=== PATIENT | female | born 1975 | race Caucasian/White ===

== ENCOUNTER 2016-10-09 04:10 | Observation (INO) | payer SELFPAY ==
[~2016-10-09] VITALS: Ht 170.2 cm; Wt 76.0 kg
[~2016-10-09 04:10] MED LIST: DOXY100T PO; PRED20 PO; SULF-154 PO; Z.0.NO CURRENT MEDS
[2016-10-09 04:11] VITALS: BP 117/67; PULSE 112; RESP 18; TEMP 98.1; O2SAT 98
[2016-10-09] MEDS ORDERED: SODIUM CHLORIDE 0.9% FLUSH 5 ML FLUSH IVF PRN (04:30)
[2016-10-09 04:38] VITALS: RESP 16
[2016-10-09 04:51] LABS: AUTOMATED NEUTROPHIL # 3.8 TH/MM3 (1.8-7.7); BASOPHIL # 0.1 TH/MM3 (0-0.2); EOSINOPHIL # 0.2 TH/MM3 (0-0.4); EOSINOPHIL % 2.9 % (0.0-4.0); HEMATOCRIT 34.2 % (35.0-46.0); HEMO FLAGS DIFF FINAL; MEAN CELL VOLUME 88.3 FL (80.0-100.0); MEAN CORPUSCULAR HEMOGLOBIN 30.2 PG (27.0-34.0); MEAN CORPUSCULAR HGB CONC 34.2 % (32.0-36.0); MONO % 7.2 % (0.0-8.0); NEUT % 57.9 % (16.0-70.0); PLATELET COUNT 258 TH/MM3 (150-450); RED BLOOD COUNT 3.87 MIL/MM3 (4.00-5.30); RED CELL DISTRIBUTION WIDTH 13.4 % (11.6-17.2); WHITE BLOOD COUNT 6.6 TH/MM3 (4.0-11.0)
--- NOTE | 2016-10-09 05:06 | RADRPT ---
EXAM DATE/TIME: 10/09/2016 04:52 [facility] COMPARISON: No previous studies available for comparison. INDICATIONS : Posterior headache for 2 weeks. RADIATION DOSE: 42.18 CTDIvol (mGy) MEDICAL HISTORY : None SURGICAL HISTORY : Tubal ligation. ENCOUNTER: Initial ACUITY: 2 weeks PAIN SCALE: 4/10 LOCATION: occipital TECHNIQUE: Multiple contiguous axial images were obtained of the head. Using automated exposure control and adj ustment of the mA and/or kV according to patient size, radiation dose was kept as low as reasonably a chievable to obtain optimal diagnostic quality images. FINDINGS: CEREBRUM: The lateral ventricles are prominent for age. No evidence of midline shift, mass lesion, hemorrhage or acute infarction. No extra-axial fluid collections are seen. POSTERIOR FOSSA: The cerebellum and brainstem are intact. The 4th ventricle is midline and normal in size. The cereb ellopontine angle is unremarkable. EXTRACRANIAL: The visualized portion of the orbits is intact. SKULL: The calvaria is intact. No evidence of skull fracture. CONCLUSION: 1. No focal or acute intracranial hemorrhage. 2. The lateral ventricles appear to be somewhat prominent for patient's age. This finding is nonspeci fic and needs to be correlated patient's physical and clinical exam. Daniel Samayoa MD on October 09, 2016 at 5:01 Board Certified Radiologist. This report was verified electronically.
[2016-10-09 05:20] LABS: BICARBONATE 27.3 MEQ/L (21.0-32.0); POTASSIUM 4.2 MEQ/L (3.5-5.1)
[2016-10-09 05:52] LABS: APTT (PATIENT) 27.3 SEC (24.3-30.1); PROTHROMBIN TIME - PATIENT 10.5 SEC (9.8-11.6)
--- NOTE | 2016-10-09 06:09 | PD ---
HPI Chief Complaint: Headache Time Seen by Provider: 04:18 Travel History International Travel<30 days: No Contact w/Intl Traveler<30days: No Traveled to known affect area: No History of Present Illness HPI 41-year-old female arrives here complaining of intermittent occipital cephalgia for the past 2 weeks. Episodes last about 5 minutes. They occur about 3-10 times per day. While they occur the patient experiences vertigo. He can be quite severe at times. At times she cannot walk. She's had no fever. No similar prior events have occurred. The cephalgia can be quite severe at times. In between the episodes she is asymptomatic. No trauma to report. 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) Reproductive: No Respiratory: Yes (BILAT PNEMONIA @18) Immunizations Current: Yes Tetanus Vaccination: > 5 Years Influenza Vaccination: No ?: Unknown : 3 Para: 2 Tubal Ligation: Yes Past Surgical History Abdominal Surgery: Yes Section: Yes (TWICE) Cholecystectomy: Yes Genitourinary Surgery: No Gynecologic Surgery: Yes ( x2) Neurologic Surgery: No Thoracic Surgery: No Other Surgery: Yes Social History Alcohol Use: No Tobacco Use: Yes (1/2PPD FOR 10 YEARS) Substance Use: No Allergies-Medications (Allergen,Severity, Reaction): Coded Allergies: Penicillin (Verified Allergy, Severe, hives and sob, 10/09/16) Reported Meds & Prescriptions Reported Meds & Active Scripts Active Review of Systems Except as stated in HPI: all other systems reviewed are Neg Physical Exam Narrative GENERAL: 41 yo F, WNWD, NAD SKIN: Warm and dry. HEAD: Atraumatic. Normocephalic. EYES: Pupils equal and round. No scleral icterus. No injection or drainage. No nystagmus ENT: No nasal bleeding or discharge. Mucous membranes pink and moist. NECK: Trachea midline. No JVD. CARDIOVASCULAR: Regular rate and rhythm. RESPIRATORY: No accessory muscle use. Clear to auscultation. Breath sounds equal bilaterally. GASTROINTESTINAL: Abdomen soft, non-tender, nondistended. Hepatic and splenic margins not palpable. MUSCULOSKELETAL: Extremities without clubbing, cyanosis, or edema. No obvious deformities. NEUROLOGICAL: Awake and alert. No obvious cranial nerve deficits. Motor grossly within normal limits. Five out of 5 muscle strength in the arms and legs. Normal speech. PSYCHIATRIC: Appropriate mood and affect; insight and judgment normal. Data Data Last Documented VS Vital Signs Date Time Temp Pulse Resp B/P Pulse Ox O2 Delivery O2 Flow Rate FiO2 10/09/16 06:30 91 16 136/72 98 Room Air 10/09/16 04:11 98.1 Orders Complete Blood Count With Diff (10/09/16 04:29) Basic Metabolic Panel (Bmp) (10/09/16 04:29) Prothrombin Time / Inr (Pt) (10/09/16 04:29) Act Partial Throm Time (Ptt) (10/09/16 04:29) Ecg Monitoring (10/09/16 04:29) Iv Access Insert/Monitor (10/09/16 04:29) Oximetry (10/09/16 04:29) Sodium Chloride 0.9% Flush (Ns Flush) (10/09/16 04:30) Ct Brain W/O Iv Contrast(Rout) (10/09/16 04:29) Mri Brain W&W/O Contrast (10/09/16 06:27) Mri C Spine W&W/O Contrast (10/09/16 ) Mrv Brain W Contrast (10/09/16 ) Westergren Sedimentation Rate (10/09/16 06:37) Admit Order (Ed Use Only) (10/09/16 06:38) Labs Laboratory Tests Test 10/09/16 10/09/16 04:45 05:25 White Blood Count 6.6 TH/MM3 Red Blood Count 3.87 MIL/MM3 Hemoglobin 11.7 GM/DL Hematocrit 34.2 % Mean Corpuscular Volume 88.3 FL Mean Corpuscular Hemoglobin 30.2 PG Mean Corpuscular Hemoglobin 34.2 % Concent Red Cell Distribution Width 13.4 % Platelet Count 258 TH/MM3 Mean Platelet Volume 7.9 FL Neutrophils (%) (Auto) 57.9 % Lymphocytes (%) (Auto) 31.0 % Monocytes (%) (Auto) 7.2 % Eosinophils (%) (Auto) 2.9 % Basophils (%) (Auto) 1.0 % Neutrophils # (Auto) 3.8 TH/MM3 Lymphocytes # (Auto) 2.0 TH/MM3 Monocytes # (Auto) 0.5 TH/MM3 Eosinophils # (Auto) 0.2 TH/MM3 Basophils # (Auto) 0.1 TH/MM3 CBC Comment DIFF FINAL Differential Comment Sodium Level 139 MEQ/L Potassium Level 4.2 MEQ/L Chloride Level 104 MEQ/L Carbon Dioxide Level 27.3 MEQ/L Anion Gap 8 MEQ/L Blood Urea Nitrogen 11 MG/DL Creatinine 0.84 MG/DL Estimat Glomerular Filtration 75 ML/MIN Rate Random Glucose 99 MG/DL Calcium Level 8.2 MG/DL Prothrombin Time 10.5 SEC Prothromb Time International 1.0 RATIO Ratio Activated Partial 27.3 SEC Thromboplast Time MDM Medical Decision Making Medical Screen Exam Complete: Yes Emergency Medical Condition: Yes Medical Record Reviewed: Yes Differential Diagnosis Intracranial mass, migraine, SAH, meningitis Narrative Course CBC & BMP Diagram 10/09/16 04:45 Coags 10.5 / 1.0 / 27.3 Last [address] 10/09/16 0429 Signed Impressions: Service Date/Time: Sunday, October 09, 2016 04:52 - CONCLUSION: 1. No focal or acute intracranial hemorrhage. 2. The lateral ventricles appear to be somewhat prominent for patient's age. This finding is nonspecific and needs to be correlated patient's physical and clinical exam. Daniel Samayoa MD The patient will be admitted for further investigation of symptomatic intracranial pathology. Discussed with Dr. Schwartz of neurology. Discussed with Dr. Sanchez. Diagnosis Primary Impression: Cephalgia Qualified Code: R51 - Nonintractable headache, unspecified chronicity pattern , unspecified headache type Additional Impression: Cerebral ventriculomegaly Admitting Information Admitting Physician Requests: Observation Shantanu Crenshaw MD Oct 09, 2016 06:09
[2016-10-09 06:30] VITALS: BP 136/72; PULSE 91; RESP 16; O2SAT 98
[2016-10-09] MEDS ORDERED: ACETAMINOPHEN 325 MG TAB PO PRN (06:45)
[2016-10-09] MEDS ORDERED: SODIUM CHLORIDE 0.9% FLUSH 5 ML FLUSH FLUSH PRN (06:45)
[2016-10-09] MEDS ORDERED: BISACODYL 10 MG SUPP PR PRN ×2 (06:45→10:15)
[2016-10-09] MEDS ORDERED: ONDANSETRON HCL 4 MG/2 ML VIAL IVP PRN (06:45)
[2016-10-09] MEDS ORDERED: ACETAMINOPHEN/HYDROcodone 325 MG/5 MG TAB PO PRN (06:45)
[2016-10-09] MEDS ORDERED: MORPHINE SULFATE 4 MG/ML INJ IV PRN (06:45)
[2016-10-09 09:00] VITALS: BP 116/67; PULSE 90; RESP 14; O2SAT 99
[2016-10-09] MEDS ORDERED: SODIUM CHLORIDE 0.9% FLUSH 5 ML FLUSH FLUSH SCH (09:00)
[2016-10-09] MEDS ORDERED: GADODIAMIDE PF 287 MG/ML 20 ML VIAL (for RAD MRI) IV ONE (09:05)
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
[2016-10-09] MEDS ORDERED: MAGNESIUM HYDROXIDE SUSP 30 ML CUP PO PRN (10:15)
[2016-10-09] MEDS ORDERED: NALOXONE HCL 0.4 MG/ML AMP IV PRN (10:15)
[2016-10-09] MEDS ORDERED: SENNOSIDES 8.6 MG TAB PO PRN (10:15)
--- NOTE | 2016-10-09 10:23 | RADRPT ---
EXAM DATE/TIME: 10/09/2016 08:31 [facility] COMPARISON: CT BRAIN W/O CONTRAST, October 09, 2016, 4:52. INDICATIONS : Pain at base of skull with vertigo and nausea. CONTRAST: 20 cc Omniscan (gadodiamide) IV MEDICAL HISTORY : None. SURGICAL HISTORY : Cholecystectomy. section. Rt hand ENCOUNTER: Initial ACUITY: 1 day PAIN SCORE: 3/10 LOCATION: cranial TECHNIQUE: Multiplanar, multisequence MRI examination of the cervical spine was performed. FINDINGS: The soft tissues are normal. Bony structures are intact and normally aligned with no ev idence fracture, compression, subluxation, or marrow replacement destructive change. Odontoid is in n ormal relationship the arch of C1 and the foramen is open and patent with normal upper thoracic spine . Multilevel degenerative disc disease is appreciated with narrowing of C3 -C6 intervertebral disc spaces and varying degrees of osteophyte disc protrusion at C3-4 most promine nt centrally encroaching upon minimally effacing the central cord and at C4-5 Central to right parace ntral protrusion slightly abutting the cord minimal at C5-6 however uncovertebral hypertrophy encroac hes upon the neural foramina bilaterally at this level. Interval central disc bulge at C6-7. CONCLUSION: Multilevel degenerative disc disease and osteophyte disc protrusions as described abo ve. No acute bony abnormality and no evidence of mass with the cord essentially intact Jay Manzano MD on October 09, 2016 at 10:18 Board Certified Radiologist. This report was verified electronically.
--- NOTE | 2016-10-09 10:36 | HHI.HP ---
[facility] No Primary Care Physician Admission Diagnosis Intermittent Occipital Cephalgia, Vertigo, Ventriculomegaly Diagnoses: Chief Complaint: Headache Travel History International Travel<30 Days: No Contact w/Intl Traveler <30 Da: No Traveled to Known Affected Are: No History of Present Illness 41-year-old female with no significant past medical history who presented with headaches. The patient states that the past 2 weeks she's been having intermittent headaches. She states the headaches are severe, and usually lasts for less than 5 minutes at a time. She denies any factors that initiated the pain. She describes the pain as a pressure, 6/10 in severity. She tries to take ibuprofen only but the headaches usually resolve before medications help. She has associated nausea and vertigo with the headaches. She denies any numbness or weakness. She has chronic sinus problems. Review of Systems Other 10 point review of systems performed and was negative except as stated in history of present illness Past Family Social History Past Medical History None Past Surgical History 2, tubal ligation Cholecystectomy Hand surgery Reported Medications None Allergies: Coded Allergies: Penicillin (Verified Allergy, Severe, hives and sob, 10/09/16) Active Ordered Medications Current Medications Medications (Trade) Dose Ordered Sig/[place] Route Start Time Stop Time Status Last Admin (NS Flush) 2 ml UNSCH PRN FLUSH 10/09/16 06:45 (NS Flush) 2 ml BID FLUSH 10/09/16 09:00 10/09/16 08:54 (Zofran Inj) 4 mg Q6H PRN IVP 10/09/16 06:45 (Tylenol) 650 mg Q6H PRN PO 10/09/16 06:45 ([place] 5-325 Mg) 1 tab Q4H PRN PO 10/09/16 06:45 (Morphine Inj) 2 mg Q3H PRN IV 10/09/16 06:45 (Dulcolax Supp) 10 mg DAILY PRN MI 10/09/16 10:15 (Colace) 100 mg Q12HR PO 10/09/16 11:00 (Milk Of Magnesia Liq) 30 ml Q12H PRN PO 10/09/16 10:15 (Senokot) 17.2 mg Q12H PRN PO 10/09/16 10:15 (Narcan Inj) 0.4 mg UNSCH PRN IV 10/09/16 10:15 Family History Extensive family history of cancer in both grandmothers and father. Lung cancer , throat cancer, skin cancer, esophageal cancer. Social History Smokes half pack per day Does use meth, last used a few days ago Denies any alcohol use Physical Exam Vital Signs Vital Signs Date Time Temp Pulse Resp B/P Pulse Ox O2 Delivery O2 Flow Rate FiO2 10/09/16 09:00 90 14 116/67 99 Room Air 10/09/16 06:30 91 16 136/72 98 Room Air 10/09/16 04:38 16 10/09/16 04:35 16 10/09/16 04:11 98.1 112 18 117/67 98 Physical Exam GENERAL: Well-developed well-nourished. In no acute distress. SKIN: Warm and dry. No lesions noted. HEENT: Normocephalic. Pupils 3 mm equal and round. Mucous membranes pink and moist. No lymphadenopathy. CARDIOVASCULAR: Regular rate and rhythm. No murmur appreciated. RESPIRATORY: No accessory muscle use. Clear to auscultation. Breath sounds equal bilaterally. GASTROINTESTINAL: Abdomen soft, non-tender, nondistended. Bowel sounds x4. MUSCULOSKELETAL: No obvious deformities. No clubbing or cyanosis. No edema. NEUROLOGICAL: Awake and alert. No focal neurological deficits. Moves upper and lower extremities spontaneously. Normal speech. PSYCHIATRIC: Appropriate mood and affect; insight and judgment normal. Laboratory Laboratory Tests Test 10/09/16 10/09/16 04:45 05:25 White Blood Count 6.6 Red Blood Count 3.87 Hemoglobin 11.7 Hematocrit 34.2 Mean Corpuscular Volume 88.3 Mean Corpuscular Hemoglobin 30.2 Mean Corpuscular Hemoglobin 34.2 Concent Red Cell Distribution Width 13.4 Platelet Count 258 Mean Platelet Volume 7.9 Neutrophils (%) (Auto) 57.9 Lymphocytes (%) (Auto) 31.0 Monocytes (%) (Auto) 7.2 Eosinophils (%) (Auto) 2.9 Basophils (%) (Auto) 1.0 Neutrophils # (Auto) 3.8 Lymphocytes # (Auto) 2.0 Monocytes # (Auto) 0.5 Eosinophils # (Auto) 0.2 Basophils # (Auto) 0.1 CBC Comment DIFF FINAL Differential Comment Erythrocyte Sedimentation Rate 21 Sodium Level 139 Potassium Level 4.2 Chloride Level 104 Carbon Dioxide Level 27.3 Anion Gap 8 Blood Urea Nitrogen 11 Creatinine 0.84 Estimat Glomerular Filtration 75 Rate Random Glucose 99 Calcium Level 8.2 Prothrombin Time 10.5 Prothromb Time International 1.0 Ratio Activated Partial 27.3 Thromboplast Time Result Diagram: 10/09/16 0445 10/09/16 0445 Imaging Last Impressions Head CT 10/09/16 0429 Signed Impressions: Service Date/Time: Sunday, October 09, 2016 04:52 - CONCLUSION: 1. No focal or acute intracranial hemorrhage. 2. The lateral ventricles appear to be somewhat prominent for patient's age. This finding is nonspecific and needs to be correlated patient's physical and clinical exam. Daniel Samayoa MD Cervical Spine MRI 10/09/16 0000 Signed Impressions: Service Date/Time: Sunday, October 09, 2016 08:31 - CONCLUSION: Multilevel degenerative disc disease and osteophyte disc protrusions as described above. No acute bony abnormality and no evidence of mass with the cord essentially intact Jay Manzano MD Assessment and Plan Problem List: (1) Cephalgia ICD Code: R51 Status: Acute (2) Cerebral ventriculomegaly ICD Code: G93.89 Status: Acute Assessment and Plan 41-year-old female with no significant past medical history who presented with headaches Headaches: Neurology was consulted from the ED, possible obstructive hydrocephalus seen on head CT. ESR 21. Brain MRI, MRV, and C-spine MRI ordered. Neurosurgery consultation requested. Supportive care. Pain control with oral and intravenous narcotics as needed. Tobacco use: Patient counseled on cessation. Patient is not interested in quitting. Methamphetamine abuse: Patient counseled on cessation. DVT prophylaxis: SCDs Written by Steven Vuong, acting as scribe for Dr. Arias on 10/09/16 at 10:36. The documentation accurately reflects the work performed [id number] by me on at 1036 Discussed Condition With Patient Problem Qualifiers (1) Cephalgia: Qualified Code: R51 - Nonintractable headache, unspecified chronicity pattern, unspecified headache type Steven Vuong Oct 09, 2016 10:36 Augustin Arias MD Oct 09, 2016 11:38
[2016-10-09] MEDS ORDERED: DOCUSATE SODIUM 100 MG CAP PO SCH (11:00)
--- NOTE | 2016-10-09 11:03 | RADRPT ---
EXAM DATE/TIME: 10/09/2016 08:31 [facility] COMPARISON: CT BRAIN W/O CONTRAST, October 09, 2016, 4:52. INDICATIONS : Pain at base of skull with vertigo and nausea. CONTRAST: 20 cc Omniscan (gadodiamide) IV MEDICAL HISTORY : None. SURGICAL HISTORY : Cholecystectomy. section. Rt hand ENCOUNTER: Initial ACUITY: 1 day PAIN SCORE: 3/10 LOCATION: cranial TECHNIQUE: Multiplanar, multisequence MRI of the brain was performed both prior to and following the administrat ion of paramagnetic contrast. FINDINGS: CEREBRUM: An 8 mm mass is seen situated within the anterior third ventricle within the midline. This is smoothl y marginated and well circumscribed. It is high in signal on the flair sequence, hypointense on T1 an d hyperintense on T2. Minimal peripheral rim enhancement is seen following gadolinium. There is mild hydrocephaly involving the lateral ventricles. The third and fourth ventricles are normal in size. No evidence of midline shift, mass lesion, hemorrhage or acute infarction. No extraaxial fluid collect ions are seen. The pituitary gland and suprasellar cistern are normal in configuration. WHITE MATTER: No significant signal abnormalities are seen in the white matter. POSTERIOR FOSSA: The cerebellum and brainstem are intact. The 4th ventricle is midline. The cerebellopontine angle is unremarkable. The cerebellar tonsils are normal in position. DIFFUSION IMAGING: No focal areas of restricted diffusion are seen. No evidence of acute infarction. EXTRACRANIAL: The visualized portions of the orbits and paranasal sinuses are unremarkable. POST-CONTRAST: No abnormal areas of parenchymal or dural enhancement. No evidence of blood-brain barrier breakdown. 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 Kole Lopez Jr., MD on October 09, 2016 at 10:54 Board Certified Radiologist. This report was verified electronically.
--- NOTE | 2016-10-09 11:36 | RADRPT ---
EXAM DATE/TIME: 10/09/2016 08:31 COMPARISON: MRI BRAIN W & W/O CONTRAST, October 09, 2016, 8:31. INDICATIONS : Pain at base of skull with vertigo and nausea. CONTRAST: 20 cc Omniscan (gadodiamide) IV MEDICAL HISTORY : None. SURGICAL HISTORY : Cholecystectomy. section. Right hand. ENCOUNTER: Subsequent ACUITY: 2 day PAIN SCORE: 3/10 LOCATION: cranial FINDINGS: The superior sagittal sinus, cortical veins, torcula, and transverse sinus and proximal jugular veins are patent. The internal cerebral veins are patent. The vena Trace and the straight sinus are patent . CONCLUSION: 1. No findings to indicate venous sinus thrombosis identified. Shantanu Moreira MD on October 09, 2016 at 11:15 Board Certified Radiologist. This report was verified electronically.
[2016-10-09 12:11] VITALS: BP 118/70; PULSE 97; RESP 18; O2SAT 99
[2016-10-09 12:33] LABS: AMPHETAMINE, URINE POS (NEG); BARBITURATES, URINE NEG (NEG); COCAINE, URINE NEG (NEG)
[2016-10-09 12:35] LABS: BACTERIA, URINE RARE /hpf; BLOOD, URINE NEG (NEG); GLUCOSE,URINE NEG (NEG); KETONE, URINE NEG (NEG); MUCUS URINE FEW /lpf (OCC); NITRITE,URINE NEG (NEG); PH, URINE 6.5 (5.0-8.5); SQUAMOUS EPITHELIAL CELL URINE 13 /hpf (0-5); URINE COLOR YELLOW (YELLW/STRAW)
[2016-10-09 12:38] LABS: COMMENT (UR) CULT NOT INDICATED; CULTURE IF INDICATED CULT NOT INDICATED
--- NOTE | 2016-10-09 12:43 | PD.CONS ---
History of Present Illness Service Neurosurgery Consult Requested By Emergency room physician Neurology Reason for Consult Hydrocephalus Primary Care Physician No Primary Care Physician Diagnoses: History of Present Illness 41-year-old female gives a history of approximately 2 weeks of new onset intermittent but relatively severe headaches and neck pain, not accompanied by nausea or vomiting. She complains of "flashing lights" at the periphery of her vision, but no definite blurred vision or diplopia. She has had no fevers chills or sweats. No definite gait difficulty, memory loss, confusion, speech deficit. She has no history of chronic headaches Review of Systems Constitutional: DENIES: Fever, Chills, Dizziness Eyes: COMPLAINS OF: Photosensitivity, DENIES: Blurred vision, Double Vision Respiratory: DENIES: Cough, Shortness of breath Cardiovascular: DENIES: Chest pain, Palpitations Gastrointestinal: DENIES: Abdominal pain, Nausea Musculoskeletal: DENIES: Joint pain Hematologic/lymphatic: DENIES: Bruising Neurologic: COMPLAINS OF: Headache, DENIES: Abnormal gait, Speech Problems, Poor Balance Psychiatric: DENIES: Anxiety, Confusion Past Family Social History Allergies: Coded Allergies: Penicillin (Verified Allergy, Severe, hives and sob, 10/09/16) Past Medical History Negative cardiac, pulmonary, gastrointestinal disease, diabetes, hypertension Past Surgical History 2 Hand surgery Cholecystectomy Reported Medications No prescription medications Family History Positive cancer in her grandmother's and grandfather. Cardiac disease grandfather Social History Smokes 1 pack cigarettes a day No alcohol Physical Exam Vital Signs Vital Signs Date Time Temp Pulse Resp B/P Pulse Ox O2 Delivery O2 Flow Rate FiO2 10/09/16 12:11 97 18 118/70 99 10/09/16 12:08 83 18 99 Room Air 10/09/16 09:00 90 14 116/67 99 Room Air 10/09/16 06:30 91 16 136/72 98 Room Air 10/09/16 04:38 16 10/09/16 04:35 16 10/09/16 04:11 98.1 112 18 117/67 98 Physical Exam GENERAL: This is a well-nourished, well-developed patient, in no apparent distress. SKIN: No rashes, ecchymoses or lesions. Cool and dry. HEAD: Atraumatic. Normocephalic. No temporal or scalp tenderness. EYES: Pupils equal round and reactive. Extraocular motions intact. No scleral icterus. There is some blunting of the medial bilateral fundus, suggestive of mild early papilledema. ENT: Nose without bleeding, purulent drainage or septal hematoma. Throat without erythema, tonsillar hypertrophy or exudate. NECK: Trachea midline. No JVD or lymphadenopathy. Supple, nontender, no meningeal signs. CARDIOVASCULAR: Regular rate and rhythm RESPIRATORY: Clear, nonlabored. No cough GASTROINTESTINAL: Abdomen soft, non-tender, nondistended. No hepato-splenomegaly , or palpable masses. No guarding. MUSCULOSKELETAL: Extremities without clubbing, cyanosis, or edema. No joint tenderness, or edema noted. No calf tenderness. NEUROLOGICAL: Awake and alert Oriented X 3 Speech is clear Conversant and appropriate Follow simple commands well Answers questions appropriately Reasonable judgment and insight Recent and remote memory are intact No evidence of anxiety or depression Pupils are equal and reactive to accommodation. Extra-ocular movements, visual hamilton to confrontation, facial sensorimotor, tongue, palate, sternocleidomastoid testing, hearing to finger rub testing, and bilateral shoulder shrug are all intact. Sensation is intact to light touch in all extremities Strength normal major flexion and extension groups all extremities Henry's absent bilaterally No ankle clonus Plantar responses absent bilateral Fine motor movements intact upper extremities Laboratory Laboratory Tests Test 10/09/16 10/09/16 04:45 05:25 White Blood Count 6.6 Red Blood Count 3.87 Hemoglobin 11.7 Hematocrit 34.2 Mean Corpuscular Volume 88.3 Mean Corpuscular Hemoglobin 30.2 Mean Corpuscular Hemoglobin 34.2 Concent Red Cell Distribution Width 13.4 Platelet Count 258 Mean Platelet Volume 7.9 Neutrophils (%) (Auto) 57.9 Lymphocytes (%) (Auto) 31.0 Monocytes (%) (Auto) 7.2 Eosinophils (%) (Auto) 2.9 Basophils (%) (Auto) 1.0 Neutrophils # (Auto) 3.8 Lymphocytes # (Auto) 2.0 Monocytes # (Auto) 0.5 Eosinophils # (Auto) 0.2 Basophils # (Auto) 0.1 CBC Comment DIFF FINAL Differential Comment Erythrocyte Sedimentation Rate 21 Sodium Level 139 Potassium Level 4.2 Chloride Level 104 Carbon Dioxide Level 27.3 Anion Gap 8 Blood Urea Nitrogen 11 Creatinine 0.84 Estimat Glomerular Filtration 75 Rate Random Glucose 99 Calcium Level 8.2 Prothrombin Time 10.5 Prothromb Time International 1.0 Ratio Activated Partial 27.3 Thromboplast Time Result Diagram: 10/09/16 0445 10/09/16 0445 Imaging 10/09/16 MRI brain images reviewed by the undersigned. Agree with findings as noted below. There is moderate ventriculomegaly of the lateral ventricles, not including the third or fourth ventricle. 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 Kole Lopez Jr., MD Head CT 10/09/16 0429 Signed Impressions: Service Date/Time: Sunday, October 09, 2016 04:52 - CONCLUSION: 1. No focal or acute intracranial hemorrhage. 2. The lateral ventricles appear to be somewhat prominent for patient's age. This finding is nonspecific and needs to be correlated patient's physical and clinical exam. Daniel Samayoa MD Head/Brain Mag Res Venography 10/09/16 0000 Signed Impressions: Service Date/Time: Sunday, October 09, 2016 08:31 - CONCLUSION: 1. No findings to indicate venous sinus thrombosis identified. Shantanu Moreira MD Cervical Spine MRI 10/09/16 0000 Signed Impressions: Service Date/Time: Sunday, October 09, 2016 08:31 - CONCLUSION: Multilevel degenerative disc disease and osteophyte disc protrusions as described above. 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 She presents with approximately 2 week of new onset intermittent severe headaches. Recommendations: Findings were discussed at length with the patient in the emergency room. Options of ventriculoperitoneal shunt placement versus surgical resection of the intraventricular lesion has been discussed. She indicates that she is amenable to surgical removal of the lesion. I advised her that this procedure could potentially be done endoscopically, however we are unable to offer this procedure at our facility. She is in agreement with transfer to [facility] for neurosurgical evaluation. Due to the patient's recent onset symptoms and MRI findings, it is felt that it would be best to proceed with a transfer on an urgent basis. This is been discussed with neurosurgery at [facility], and they have agreed to accept the patient for transfer today. Av Baum MD Oct 09, 2016 12:42
[2016-10-09] MEDS ORDERED: NICOTINE 21 MG/24 HR PATCH TD SCH (13:00)
[2016-10-09] MEDS ORDERED: LORazepam 1 MG TAB PO PRN (13:00)
[2016-10-09] MEDS ORDERED: LORazepam 2 MG/ML VIAL IV PUSH ONE (13:30)
[2016-10-09 14:30] VITALS: BP 138/75
--- NOTE | 2016-10-09 15:03 | HHI.DCPOC ---
Discharge Care Plan Diagnosis: (1) Cerebral ventriculomegaly (2) Cephalgia Your Health Problems Are: Difficulty with ADL Exercise Tolerance Goals to Promote Your Health * To prevent worsening of your condition and complications * To maintain your health at the optimal level Directions to Meet Your Goals Take your medications as prescribed Follow your dietary instruction Follow activity as directed Keep your appointments as scheduled Take your immunizations and boosters as scheduled If your symptoms worsen call your PCP, if no PCP go to Urgent Care Center or Emergency Room Smoking is Dangerous to Your Health. Avoid second hand smoke Call the 24-hour hour crisis hotline for domestic abuse at Augustin Arias MD Oct 09, 2016 15:03
[2016-10-09 15:35] LABS: FREE T4 1.09 NG/DL (0.76-1.46)
[2016-10-09] MEDS ORDERED: REMOVE OLD NICODERM (NICOTINE) PATCH TD SCH (21:00)
[2016-10-10 10:14] LABS: RAPID PLASMA REAGIN SCREEN NON-REACTIVE (NON-REACTVE)
[2016-10-11 14:00] LABS: ANA SCREEN NEG (NEG)
== END 2016-10-09 14:30 | disposition short-term general hospital (02) ==
LOC: NEPC 04:10 → NEDA 06:40
PROVIDERS: ADMIT Internal Medicine; ATTEND Internal Medicine
DX: G93.89 Other specified disorders of brain (principal); R51 Headache; G91.1 Obstructive hydrocephalus; R42 Dizziness and giddiness; F17.210 Nicotine dependence, cigarettes, uncomplicated; Z80.1 Family history of malignant neoplasm of trachea, bronchus and lung; Z80.8 Family history of malignant neoplasm of other organs or systems
CPT/HCPCS: 70450; 70546; 70553; 72156; 80048; 80307; 81001; 82607; 84439; 84443; 85025; 85610; 85652; 85730; 86038; 86592; 99285; A9579; G0378; J2060

== ENCOUNTER 2016-11-18 02:23 | Emergency (ER) | payer SELFPAY ==
[~2016-11-18] VITALS: Ht 172.7 cm; Wt 80.0 kg
[2016-11-18 02:24] VITALS: BP 130/82; PULSE 97; RESP 18; TEMP 98; O2SAT 100
[2016-11-18 03:18] LABS: BLOOD, URINE NEG (NEG); GLUCOSE,URINE NEG (NEG); KETONE, URINE NEG (NEG); NITRITE,URINE NEG (NEG); PH, URINE 5.5 (5.0-8.5); SQUAMOUS EPITHELIAL CELL URINE 1 /hpf (0-5); URINE COLOR LIGHT-YELLOW (YELLW/STRAW)
[2016-11-18 03:22] LABS: COMMENT (UR) CULT NOT INDICATED; CULTURE IF INDICATED CULT NOT INDICATED
[2016-11-18] MEDS ORDERED: KETOROLAC TROMETHAMINE 30 MG/ML (IVP) VIAL IV PUSH ONE (04:45)
[2016-11-18] MEDS ORDERED: SODIUM CHLOR 0.9% 1000 ML INJ 1,000 ML IV ONE (04:45)
[2016-11-18 04:59] LABS: AUTOMATED NEUTROPHIL # 4.3 TH/MM3 (1.8-7.7); BASOPHIL # 0.1 TH/MM3 (0-0.2); BASOPHIL % 0.8 % (0.0-2.0); EOSINOPHIL # 0.2 TH/MM3 (0-0.4); EOSINOPHIL % 3.3 % (0.0-4.0); HEMATOCRIT 34.7 % (35.0-46.0); HEMO FLAGS DIFF FINAL; LYMPH % 28.1 % (9.0-44.0); LYMPHOCYTE # 2.1 TH/MM3 (1.0-4.8); MEAN CELL VOLUME 89.3 FL (80.0-100.0); MEAN CORPUSCULAR HEMOGLOBIN 30.6 PG (27.0-34.0); MEAN CORPUSCULAR HGB CONC 34.3 % (32.0-36.0); MONO % 9.7 % (0.0-8.0); NEUT % 58.1 % (16.0-70.0); PLATELET COUNT 284 TH/MM3 (150-450); RED BLOOD COUNT 3.88 MIL/MM3 (4.00-5.30); WHITE BLOOD COUNT 7.4 TH/MM3 (4.0-11.0)
[2016-11-18 05:27] LABS: ALKALINE PHOSPHATASE 77 U/L (45-117); TOTAL BILIRUBIN ADULT 0.1 MG/DL (0.2-1.0)
[2016-11-18 05:31] LABS: ALT (GPT) 26 U/L (10-53); ANION GAP 8 MEQ/L (5-15); AST (GOT) 20 U/L (15-37); BICARBONATE 23.3 MEQ/L (21.0-32.0); BLOOD UREA NITROGEN 12 MG/DL (7-18); CHLORIDE 109 MEQ/L (98-107); GLOMERULAR FILTRATION RATE 123 ML/MIN (>89); POTASSIUM 4.1 MEQ/L (3.5-5.1); SODIUM (NA) 140 MEQ/L (136-145)
[2016-11-18] MEDS ORDERED: IOHEXOL 350 MG/ML 10 ML VIAL (for RAD DIAG) IV ONE (06:46)
--- NOTE | 2016-11-18 07:15 | RADRPT ---
EXAM DATE/TIME: 11/18/2016 06:43 [facility] COMPARISON: No previous studies available for comparison. INDICATIONS : Lower abdominal pain. IV CONTRAST: 97 cc Omnipaque 350 (iohexol) IV ORAL CONTRAST: No oral contrast ingested. RADIATION DOSE: 11.08 CTDIvol (mGy) MEDICAL HISTORY : SURGICAL HISTORY : Cholecystectomy. section.Tubal ligation. ENCOUNTER: Initial ACUITY: 2 days PAIN SCALE: 6/10 LOCATION: abdomen TECHNIQUE: Volumetric scanning of the abdomen and pelvis was performed. Using automated exposure control and ad justment of the mA and/or kV according to patient size, radiation dose was kept as low as reasonably achievable to obtain optimal diagnostic quality images. FINDINGS: There is mild motion artifact. LOWER LUNGS: The visualized lower lungs are clear. LIVER: Homogeneous density without lesion. There is no dilation of the biliary tree. There has been prior cholecystectomy clips in the gallbladder fossa. SPLEEN: Normal size without lesion. PANCREAS: Within normal limits. KIDNEYS: Normal in size and shape. There is no mass, stone or hydronephrosis. ADRENAL GLANDS: Within normal limits. VASCULAR: There is no aortic aneurysm. BOWEL/MESENTERY: The stomach, small bowel, and colon demonstrate no acute abnormality. There is no free intraperitone al air. There is trace free fluid in the pelvis. ABDOMINAL WALL: There is SUPERINTENDENT DRILLING AND PRODUCTION shunt tubing in the subcutaneous fat along the midline anterior abdominal wall. Enters th e midline and is looped in the right upper quadrant lateral to the liver and terminates near the recio sverse colon. RETROPERITONEUM: There is no lymphadenopathy. BLADDER: No wall thickening or mass. REPRODUCTIVE: Within normal limits. There is a left ovarian follicle measuring 18 mm. INGUINAL: There is no lymphadenopathy or hernia. MUSCULOSKELETAL: Within normal limits for patient age. CONCLUSION: 1. No acute finding is identified within the abdomen or pelvis to explain the patient's pain. There i s trace free fluid in the pelvis that may be physiologic. 2. SUPERINTENDENT DRILLING AND PRODUCTION shunt is present with tubing tip near the midline adjacent to the transverse colon. Rafa Hernandez MD on November 18, 2016 at 7:09 Board Certified Radiologist. This report was verified electronically.
[2016-11-18 07:22] VITALS: BP 126/69; PULSE 58; RESP 16; O2SAT 98
--- NOTE | 2016-11-18 08:13 | PD ---
HPI Chief Complaint: Quality Process Lead Problem/Complaint Time Seen by Provider: 04:15 Travel History International Travel<30 days: No Contact w/Intl Traveler<30days: No Traveled to known affect area: No History of Present Illness HPI Patient is a 41-year-old female comes in complaining of right lower quadrant pain. She says she is late on her period and she is worried she may be . She has not taken a test at home. She has history of tubal ligation. She says she has had the pain for the past few days. She denies nausea or vomiting. She denies fever or chills. She denies any vaginal discharge. She denies any dysuria. 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) Reproductive: No Respiratory: Yes (BILAT PNEMONIA @18) Immunizations Current: Yes Tetanus Vaccination: < 5 Years Influenza Vaccination: No ?: Not LMP: 10/12/16 : 4 Para: 2 Tubal Ligation: Yes Past Surgical History Abdominal Surgery: Yes Section: Yes (TWICE) Cholecystectomy: Yes Genitourinary Surgery: No Gynecologic Surgery: Yes ( x2) Neurologic Surgery: Yes (cyst removed from brain, tempoary shunt put in brain) Thoracic Surgery: No Other Surgery: Yes Social History Alcohol Use: No Tobacco Use: Yes (1/2PPD FOR 10 YEARS) Substance Use: Yes (meth occasional use) Allergies-Medications (Allergen,Severity, Reaction): Coded Allergies: Penicillin (Verified Allergy, Severe, hives and sob, 11/18/16) Reported Meds & Prescriptions Reported Meds & Active Scripts Active No Active Prescriptions or Reported Medications Review of Systems Except as stated in HPI: all other systems reviewed are Neg General / Constitutional: No: Fever, Chills HENT: No: Headaches, Lightheadedness Cardiovascular: No: Chest Pain or Discomfort Respiratory: No: Shortness of Breath Gastrointestinal: Positive: Abdominal Pain, No: Nausea, Vomiting Genitourinary: No: Dysuria, Discharge, Vaginal Bleeding Skin: No Rash, No Change in Pigmentation Neurologic: No: Weakness, Dizziness Physical Exam Narrative GENERAL: Awake and alert, in no acute distress. SKIN: Warm and dry. HEAD: Atraumatic. Normocephalic. EYES: Pupils equal and round. No scleral icterus. ENT: Mucous membranes pink and moist. NECK: Trachea midline. No JVD. CARDIOVASCULAR: Regular rate and rhythm. No murmur appreciated. RESPIRATORY: No accessory muscle use. Clear to auscultation. Breath sounds equal bilaterally. GASTROINTESTINAL: Abdomen soft, nondistended. Mild right lower quadrant tenderness. No rebound or guarding. MUSCULOSKELETAL: No obvious deformities. No clubbing. No cyanosis. No edema. NEUROLOGICAL: Awake and alert. No obvious cranial nerve deficits. Motor grossly within normal limits. Normal speech. PSYCHIATRIC: Appropriate mood and affect; insight and judgment normal. Data Data Last Documented VS Vital Signs Date Time Temp Pulse Resp B/P Pulse Ox O2 Delivery O2 Flow Rate FiO2 11/18/16 07:22 58 16 126/69 98 Room Air 11/18/16 02:24 98.0 Orders Urinalysis - C+S If Indicated (11/18/16 02:57) Ed Urine Pregnancytest Poc (11/18/16 02:57) Complete Blood Count With Diff (11/18/16 04:36) Basic Metabolic Panel (Bmp) (11/18/16 04:36) Hepatic Functional Panel (11/18/16 04:36) Lipase (11/18/16 04:36) Sodium Chlor 0.9% 1000 Ml Inj (Ns 1000 M (11/18/16 04:45) Ketorolac Inj (Toradol Inj) (11/18/16 04:45) Ct Abd/Pel W Iv Contrast(Rout) (11/18/16 ) Iohexol 350 Inj (Omnipaque 350 Inj) (11/18/16 06:46) Labs Laboratory Tests Test 11/18/16 11/18/16 02:58 04:30 Urine Color LIGHT-YELLOW Urine Turbidity CLEAR Urine pH 5.5 Urine Specific [place] 1.004 Urine Protein NEG mg/dL Urine Glucose (UA) NEG mg/dL Urine Ketones NEG mg/dL Urine Occult Blood NEG Urine Nitrite NEG Urine Bilirubin NEG Urine Urobilinogen LESS THAN 2.0 MG/DL Urine Leukocyte Esterase NEG Urine RBC LESS THAN 1 /hpf Urine WBC 1 /hpf Urine Squamous Epithelial 1 /hpf Cells Microscopic Urinalysis Comment CULT NOT INDICATED White Blood Count 7.4 TH/MM3 Red Blood Count 3.88 MIL/MM3 Hemoglobin 11.9 GM/DL Hematocrit 34.7 % Mean Corpuscular Volume 89.3 FL Mean Corpuscular Hemoglobin 30.6 PG Mean Corpuscular Hemoglobin 34.3 % Concent Red Cell Distribution Width 14.0 % Platelet Count 284 TH/MM3 Mean Platelet Volume 7.6 FL Neutrophils (%) (Auto) 58.1 % Lymphocytes (%) (Auto) 28.1 % Monocytes (%) (Auto) 9.7 % Eosinophils (%) (Auto) 3.3 % Basophils (%) (Auto) 0.8 % Neutrophils # (Auto) 4.3 TH/MM3 Lymphocytes # (Auto) 2.1 TH/MM3 Monocytes # (Auto) 0.7 TH/MM3 Eosinophils # (Auto) 0.2 TH/MM3 Basophils # (Auto) 0.1 TH/MM3 CBC Comment DIFF FINAL Differential Comment Sodium Level 140 MEQ/L Potassium Level 4.1 MEQ/L Chloride Level 109 MEQ/L Carbon Dioxide Level 23.3 MEQ/L Anion Gap 8 MEQ/L Blood Urea Nitrogen 12 MG/DL Creatinine 0.55 MG/DL Estimat Glomerular Filtration 123 ML/MIN Rate Random Glucose 77 MG/DL Calcium Level 8.5 MG/DL Total Bilirubin 0.1 MG/DL Direct Bilirubin LESS THAN 0.1 MG/DL Indirect Bilirubin 0.0 MG/DL Aspartate Amino Transf 20 U/L (AST/SGOT) Alanine Aminotransferase 26 U/L (ALT/SGPT) Alkaline Phosphatase 77 U/L Total Protein 7.5 GM/DL Albumin 3.5 GM/DL Lipase 109 U/L [facility] Medical Decision Making Medical Screen Exam Complete: Yes Emergency Medical Condition: Yes Differential Diagnosis UTI vs appendicitis vs menstrual cramps vs ovarian cyst. Narrative Course Patient is a 41 year old female who comes in complaining of RLQ abdominal pain. Exam shows mild tenderness to the RLQ. IV established, labs sent. Given IVF , Toradol. Urine test is negative. Labs show no acute abnormalities. CT abd/pelvis shows no acute abnormalities. Last 24 hours Impressions Abdomen/Pelvis CT 11/18/16 0000 Signed Impressions: Service Date/Time: Friday, November 18, 2016 06:43 - CONCLUSION: 1. No acute finding is identified within the abdomen or pelvis to explain the patient's pain. There is trace free fluid in the pelvis that may be physiologic. 2. ASSOCIATE THEATRE PROFESSOR shunt is present with tubing tip near the midline adjacent to the transverse colon. Rafa Hernandez MD Patient is feeling better. Advised to take Ibuprofen as needed for pain. ADvised to follow up with business applications developer, advised to return to the ED as needed for any worsening symptoms. Diagnosis Primary Impression: Abdominal pain Qualified Code: R10.31 - Right lower quadrant abdominal pain Patient Instructions: Abdominal Pain (ED), General Instructions Additional Instructions: Take Ibuprofen as needed for pain. Follow up with .net programmer. Return to the ED as needed for any worsening symptoms. Scripts No Active Prescriptions or Reported Meds Disposition: 01 DISCHARGE HOME Condition: Stable Heather Pereira MD Nov 18, 2016 08:13
[2016-11-18 08:47] VITALS: BP 134/78
== END 2016-11-18 08:48 | disposition home or self-care (01) ==
LOC: NEPC 02:23
DX: R10.31 Right lower quadrant pain (principal); F17.210 Nicotine dependence, cigarettes, uncomplicated; F15.90 Other stimulant use, unspecified, uncomplicated
CPT/HCPCS: 74177; 80048; 80076; 81001; 83690; 84703; 85025; 96374; 99284; J1885; J7030; Q9967

== ENCOUNTER 2016-12-12 00:31 | Emergency (ER) | payer SELFPAY ==
[2016-12-12 00:33] VITALS: BP 138/83; PULSE 111; RESP 16; TEMP 97.8; O2SAT 98
== END 2016-12-12 02:52 | disposition left against medical advice (07) ==
LOC: NED 00:31
DX: Z03.89 Encounter for observation for other suspected diseases and conditions ruled out (principal)
CPT/HCPCS: 99281